=== PATIENT | male | born 1950 | race Hispanic/Latino ===

== ENCOUNTER → 2018-01-04 | Outpatient (CLI) | payer OTHER, MEDICARE | END | disposition home or self-care (01) | LOC: SHCH 09:04 | PROVIDERS: ATTEND Internal Medicine Cardiovascular Disease | DX: I65.21 Occlusion and stenosis of right carotid artery (principal) | CPT/HCPCS: 93880 ==

== ENCOUNTER 2018-11-26 22:49 | Emergency (ER) | payer OTHER, MEDICARE | END 2018-11-26 23:58 | disposition home or self-care (01) | LOC: EDH 22:49 | DX: J20.9 Acute bronchitis, unspecified (principal); Z86.73 Personal history of transient ischemic attack (TIA), and cerebral infarction without residual deficits | CPT/HCPCS: 71046 ==